=== PATIENT | female | born 1955 ===

== ENCOUNTER 2019-05-09 14:41 | Outpatient (CLI) | payer OTHER ==
[~2019-05-09] VITALS: Ht 162.6 cm; Wt 61.7 kg
[2019-05-09 14:50] VITALS: BP 130/69
--- NOTE | 2019-05-09 19:00 | Consultation ---
DATE OF CONSULTATION: 05/09/2019 CHIEF COMPLAINT: GERD and weight loss. HISTORY OF PRESENT ILLNESS: The patient is a 63-year-old female has history of chronic GERD since December. She has been on Prilosec, lost over 15 pounds, had a recent colonoscopy done but never had endoscopies and also complained of some early satiety and chest pain. PAST MEDICAL HISTORY: GERD. PAST SURGICAL HISTORY: Right foot surgery. MEDICATIONS: Prilosec. FAMILY HISTORY: Mother had breast cancer. SOCIAL HISTORY: The patient drinks alcohol socially otherwise no tobacco and no IV drug abuse. ALLERGIES: No known drug allergies. PHYSICAL EXAMINATION: VITAL SIGNS: Temperature 97.6, blood pressure 130/69, pulse 60, respirations 20. HEENT: Normocephalic and atraumatic. Sclerae anicteric. NECK: Supple. No evidence of obvious lymphadenopathy. CARDIOVASCULAR: Regular rate and rhythm. Plus S1 and S2. No obvious murmur. LUNGS: Clear to auscultation bilaterally. ABDOMEN: Positive bowel sounds. Soft and nontender. No rebound. No guarding. No peritoneal sign. EXTREMITIES: No cyanosis. No clubbing. No edema. ASSESSMENT AND PLAN: This is a 63-year-old female with epigastric pain, significant weight loss. No response to PPI. Need endoscopy, we are going to try to get authorization for that. Kaz Curran M.D. DR: Gasper JOB#: [id number] CC:
[2019-05-10] MEDS ORDERED: PRILOSEC OTC20 MG ORAL (15:32)
== END 2019-05-09 15:41 | disposition home or self-care (01) ==
LOC: PAN 14:41
DX: K21.9 Gastro-esophageal reflux disease without esophagitis (principal); R63.4 Abnormal weight loss; Z68.23 Body mass index [BMI] 23.0-23.9, adult; R10.13 Epigastric pain
CPT/HCPCS: G0463

== ENCOUNTER 2019-08-02 13:47 | Outpatient (CLI) | payer OTHER ==
[~2019-08-02 13:47] MED LIST: PRILOSEC OTC20 MG ORAL
--- NOTE | 2019-08-06 14:15 | General Progress Note ---
Assessment/Plan Assessment/Plan: GERD s/p EGD procedure and biopsy results D/W the patient RTC prn Subjective ROS Limited/Unobtainable: Yes Allergies: Coded Allergies: No Known Allergies (Unverified , 05/10/19) Objective General Appearance: alert EENT: normal ENT inspection Neck: supple Cardiovascular: normal rate Respiratory/Chest: decreased breath sounds Abdomen: normal bowel sounds, non tender, soft Extremities: non-tender Kaz Curran MD Aug 06, 2019 14:15
== END 2019-08-02 16:01 | disposition home or self-care (01) ==
LOC: PAN 13:47
DX: K21.9 Gastro-esophageal reflux disease without esophagitis (principal)
CPT/HCPCS: 99212